=== PATIENT | male | born 1950 | race Caucasian/White ===

== ENCOUNTER 2018-05-30 03:12 | Outpatient (CLI) | payer MEDICARE, SELFPAY ==
[2018-05-30 10:57] LABS: Hemoglobin A1C 9.2 % (4.5-6.2)
[2018-05-30 11:22] LABS: Anion Gap 7.9 mmol/L (3-11); BUN 15 mg/dL (7-18); CO2 26.1 mmol/L (21.0-32.0); CREATININE 1.47 mg/dL (0.70-1.30); Calcium 8.9 mg/dL (8.5-10.1); Chloride 99 mmol/L (98-107); Glucose 255 mg/dL (70-100); Potassium 4.9 mmol/L (3.5-5.1); Sodium 133 mmol/L (136-145)
[2018-05-30 11:29] LABS: COMMENT (LAB VIEW ONLY) 129.96 mg/dL; Microalb ug/mg Crea 74.8 ug/mg Cr
== END 2018-05-30 03:32 ==
PROVIDERS: PCP Emergency Medicine; Visit Provider Emergency Medicine
DX: E11.9 Type 2 diabetes mellitus without complications (principal)
CPT/HCPCS: 36415; 80048; 82043; 82570; 83036

== ENCOUNTER → 2018-11-01 10:24 | Outpatient (BNVA) | payer MEDICARE, BC, SELFPAY | PROVIDERS: PCP Emergency Medicine; Referring Provider Emergency Medicine; Visit Provider Surgery | DX: K42.9 Umbilical hernia without obstruction or gangrene (principal); I10 Essential (primary) hypertension; E11.9 Type 2 diabetes mellitus without complications | CPT/HCPCS: 99203; 99213 ==

== ENCOUNTER 2018-11-06 09:35 | Day surgery (SDC) | payer MEDICARE, BC, SELFPAY ==
[2018-11-06 09:47] VITALS: BP 133/88; PULSE 89; RESP 18; TEMP 36.5; O2SAT 94
[2018-11-06] MEDS: Lactated Ringers 1,000 ML 80 ML IV (10:13)
[2018-11-06] MEDS: Bupivacaine 0.25% Pres-Free 30 ML VIAL (11:00)
[2018-11-06] MEDS: Bupivacaine 0.25% Pres-Free 10 ML VIAL (11:53)
[2018-11-06 12:42] VITALS: BP 134/89; PULSE 74; RESP 16; TEMP 36.2; O2SAT 94
--- NOTE | 2018-11-06 12:46 | PDOC.DSDIS_ITS ---
Discharge Plan Disposition Patient Disposition: HOME Condition: Good Discharge Details Reason For Visit: HERNIA Attending Provider: Simi Morley Primary Care Provider: Bhavin Giordano Home Meds and New Rx's Prescriptions: New ibuprofen 600 mg tablet 600 mg PO QID PRN (Reason: pain) Qty: 30 RF: 0 acetaminophen 500 mg capsule 1,000 mg PO Q6H PRN (Reason: pain) Qty: 30 RF: 0 Continued ProAir HFA 90 mcg/actuation HFA aerosol inhaler 2 puff IH QID PRN (Reason: shortness of breath or wheezing) Qty: 8.5 RF: 4 aspirin [Aspirin Low-Strength] 81 MG tablet,chewable 81 mg PO DAILY RF: 0 lancets [FreeStyle Lancets] 1 EACH misc 1 ea Miscellaneous DAILY Qty: 90 RF: 4 FreeStyle Lite Strips 1 EACH strip 1 ea Miscellaneous DAILY Qty: 90 RF: 3 glipizide 5 MG tablet extended release 24hr 5 mg PO BID Qty: 180 RF: 3 FreeStyle Lite Strips 1 EACH strip 1 ea Miscellaneous DAILY Qty: 90 RF: 4 lisinopril 10 MG tablet 10 mg PO DAILY Qty: 90 RF: 4 metformin 500 MG tablet extended release 24hr 2 tab PO DAILY Qty: 180 RF: 3 omeprazole 20 mg capsule,delayed release(DR/EC) 20 mg PO DAILY Qty: 60 RF: 4 Discharge Instructions Instructions: Ventral Hernia Repair (DC) Additional Instructions: Activity at Home after surgery: 1. Make sure you walk outside at least 4 times per day 2. You should be able to climb a flight of stairs 3. No driving while in pain or taking pain medications 4. No strenuous activity or heavy lifting for 4 weeks (open surgery) Diet, Nutrition, & wound healin. Avoid alcohol until after you are recovered from your surgery 2. Make sure to eat plenty of lean protein (meat, fish, eggs, cottage cheese, beans) 3. Eat a variety of fruits and vegetables. Eat plenty of high fiber foods to avoid constipation. 4. Drink plenty of liquids to stay hydrated and avoid constipation Pain Medications: 1. Alternate Tylenol 1000 mg and Ibuprofen 600 mg every 3 hours 2. If a narcotic has been prescribed take as directed only for breakthrough pain For Constipation: 1. Take Milk of Magnesia or MiraLax as needed for constipation Other: 1. You may shower daily. Do not scrub the incisions 2. Do not soak the incisions for 1 week 3. You may alternate ice and heat as needed for pain and swelling Wound Care: 1. Keep the incisions clean and dry Please call our office if you develop: 1. Fevers >101.5 2. Nausea or Vomiting 3. Worsening pain 4. Redness and thick discharge from the wounds If after hours please call the Hospital at and ask to speak to the on-call surgeon Stand Alone Forms: DSU Post op Instructions, Chinyere Hathaway (DSU) Referrals: Simi Morley MD [ [facility] STAFF PHYSICIAN] - (2 weeks) Activity:: Activity as Tolerated Diet:: As Tolerated Discharge Orders Discharge Orders: Discharge Order (Routine); Ordered 11/06/18 Ordered By: Simi Morley DS: Diagnosis Discharge Diagnosis (1) History of umbilical hernia repair: Status: Acute
[2018-11-06 12:47] VITALS: BP 116/69; PULSE 73; RESP 16; TEMP 36.2; O2SAT 93
--- NOTE | 2018-11-06 12:50 | W.PM.OP ---
Date of service: 11/06/18 Time of Service: 12:50 Operative Note DATE OF PROCEDURE: 11/06/18 PRE-OP DIAGNOSIS: Umbilical hernia POST-OP DIAGNOSIS: same PROCEDURE: Umbilical Hernia repair with mesh SURGEON: Simi Morley CENTRAL SCHEDULER: Maricarmen Rivera ANESTHESIA: MAC and regional ESTIMATED BLOOD LOSS: 25 PATHOLOGY: none sent COMPLICATIONS: None Patient was transported to: same day Patient's condition: stable Implants: Ventralex ST Hernia Patch Lot# [id number] Ref # [id number] Indications: Mr. Goode is a pleasant 68 year old male who was seen in the office with an enlarging umbilical hernia. Risks, benefits and complications have been reviewed. Complications include but are not limited to bleeding, pain, infection, injury to underlying structures like bowel and adverse reaction to the medication. Questions were entertained and answered to their satisfaction and they wished to proceed. No guarantees were given or implied. Procedure Description: After informed consent was obtained the patient was taken to the operating room and placed in a supine position. Monitors and SCDs were applied and a timeout was done. The patient's name, date of , procedure type, procedure site, allergies to medications, preoperative antibiotic, and DVT prophylaxis were all reviewed. Fire risk was assessed. Next anesthesia did a bilateral rectus block under ultrasound guidance. Please see their separate dictation. Once anesthesia was done the abdomen was prepped and draped in a sterile surgical fashion. 0.5% Bupivacaine was injected into the dermis just under the umbilicus. An incision was made with a 10 blade under the umbilicus. Dissection was done with cautery through the subcutaneous tissues and through the umbilical stalk down to the fascia. The hernia defect was identified and measured 1 inch. The hernia sac was opened and the peritoneum was swept for adhesions. no adhesions were noted. A 3.2 inch round mesh was then placed under the peritoneum and secured in 4 quarters with 2-0 Proline. Once the mesh was secured the tissues were irrigated with some normal saline. No bleeding was identified. The fascia was closed over the mesh with 0 vicryl running suture. 2-0 Vicryl was used to secure the umbilicus down to the fascia. The subcutaneous tissue was re-approximated with 2-0 vicryl. The dermis was re-approximated with a running 4-0 Vicryl. The skin was cleaned and dried and skin affix was applied. The patient was woken up and taken back to recovery in stable condition. There were no immediate complications. Sponge, instrument and needle counts were correct at the end of the case x2.
[2018-11-06 12:52] VITALS: BP 124/75; PULSE 72; RESP 16; TEMP 36.2; O2SAT 94
[2018-11-06 12:57] VITALS: BP 115/78; PULSE 69; RESP 13; TEMP 36.2; O2SAT 95
--- NOTE | 2018-11-06 12:59 | ROE_ITS ---
Date of service: 11/06/18 Time of Service: 12:50 Operative Note DATE OF PROCEDURE: 11/06/18 PRE-OP DIAGNOSIS: Umbilical hernia POST-OP DIAGNOSIS: same PROCEDURE: Umbilical Hernia repair with mesh SURGEON: Simi Morley RETORT FIREMAN: Maricarmen Rivera ANESTHESIA: MAC and regional ESTIMATED BLOOD LOSS: 25 PATHOLOGY: none sent COMPLICATIONS: None Patient was transported to: same day Patient's condition: stable Implants: Ventralex ST Hernia Patch Lot# [id number] Ref # [id number] Indications: Mr. Goode is a pleasant 68 year old male who was seen in the office with an enlarging umbilical hernia. Risks, benefits and complications have been reviewed. Complications include but are not limited to bleeding, pain, infection, injury to underlying structures like bowel and adverse reaction to the medication. Questions were entertained and answered to their satisfaction and they wished to proceed. No guarantees were given or implied. Procedure Description: After informed consent was obtained the patient was taken to the operating room and placed in a supine position. Monitors and SCDs were applied and a timeout was done. The patient's name, date of , procedure type, procedure site, allergies to medications, preoperative antibiotic, and DVT prophylaxis were all reviewed. Fire risk was assessed. Next anesthesia did a bilateral rectus block under ultrasound guidance. Please see their separate dictation. Once anesthesia was done the abdomen was prepped and draped in a sterile surgical fashion. 0.5% Bupivacaine was injected into the dermis just under the umbilicus. An incision was made with a 10 blade under the umbilicus. Dissection was done with cautery through the subcutaneous tissues and through the umbilical stalk down to the fascia. The hernia defect was identified and measured 1 inch. The hernia sac was opened and the peritoneum was swept for adhesions. no adhesions were noted. A 3.2 inch round mesh was then placed under the peritoneum and secured in 4 quarters with 2-0 Proline. Once the mesh was secured the tissues were irrigated with some normal saline. No bleeding was identified. The fascia was closed over the mesh with 0 vicryl running suture. 2-0 Vicryl was used to secure the umbilicus down to the fascia. The subcutaneous tissue was re-approximated with 2-0 vicryl. The dermis was re-approximated with a running 4-0 Vicryl. The skin was cleaned and dried and skin affix was applied. The patient was woken up and taken back to recovery in stable condition. There were no immediate complications. Sponge, instrument and needle counts were correct at the end of the case x2.
[2018-11-06] MEDS: Acetaminophen 325 MG TAB 650 MG PO (13:40)
[2018-11-06 14:06] VITALS: BP 130/76; PULSE 75; RESP 16; TEMP 36.2; O2SAT 93
== END 2018-11-06 14:25 | disposition home or self-care (01) ==
PROVIDERS: PCP Emergency Medicine; Visit Provider Surgery
PROC: (CPT 49505; principal; 2018-11-06 10:45)
DX: K42.9 Umbilical hernia without obstruction or gangrene (principal); E11.9 Type 2 diabetes mellitus without complications; Z79.84 Long term (current) use of oral hypoglycemic drugs; I10 Essential (primary) hypertension
CPT/HCPCS: 49505; 49585; 76942; C1781; J0690; J1100; J2405

== ENCOUNTER 2018-11-22 08:54 | Outpatient (CLI) | payer MEDICARE, BC, SELFPAY ==
[2018-11-22 11:12] LABS: COMMENT (LAB VIEW ONLY) 89.45 mg/dL; Microalb ug/mg Crea 105.4 ug/mg Cr
[2018-11-22 11:36] LABS: Anion Gap 6.5 mmol/L (3-11); BUN 15 mg/dL (7-18); CO2 30.5 mmol/L (21.0-32.0); CREATININE 1.24 mg/dL (0.70-1.30); Chloride 97 mmol/L (98-107); Cholesterol 298 mg/dL (50-200); Glucose 232 mg/dL (70-100); HDL Cholesterol 42 mg/dL (40-60); LDL CHOLESTEROL 188 mg/dL (<100); Potassium 5.1 mmol/L (3.5-5.1); Sodium 134 mmol/L (136-145); Triglyceride 335 mg/dL (30-150)
[2018-11-25 11:43] LABS: PSA, Screening 2.2 ng/ml (0-4.5)
== END 2018-11-22 09:14 ==
PROVIDERS: PCP Emergency Medicine; Visit Provider Emergency Medicine
DX: E11.65 Type 2 diabetes mellitus with hyperglycemia (principal); I12.9 Hypertensive chronic kidney disease with stage 1 through stage 4 chronic kidney disease, or unspecified chronic kidney disease; Z12.5 Encounter for screening for malignant neoplasm of prostate; Z48.815 Encounter for surgical aftercare following surgery on the digestive system; E11.22 Type 2 diabetes mellitus with diabetic chronic kidney disease; N18.9 Chronic kidney disease, unspecified
CPT/HCPCS: 36415; 80048; 80061; 83721; 84153; 82043; 82570; 83036

== ENCOUNTER 2019-02-04 01:44 | Outpatient (CLI) | payer MEDICARE, BC, SELFPAY ==
[2019-02-04 12:01] LABS: Hemoglobin A1C 9.4 % (4.5-6.2)
[2019-02-04 12:45] LABS: Anion Gap 9.2 mmol/L (3-11); BUN 23 mg/dL (7-18); CO2 28.8 mmol/L (21.0-32.0); CREATININE 1.34 mg/dL (0.70-1.30); Calcium 9.7 mg/dL (8.5-10.1); Chloride 98 mmol/L (98-107); Estimated GFR 52.85 (mL/min/1.73m2); Glucose 214 mg/dL (70-100); Sodium 136 mmol/L (136-145)
== END 2019-02-04 02:04 ==
PROVIDERS: PCP Emergency Medicine; Visit Provider Emergency Medicine
DX: I10 Essential (primary) hypertension (principal); E11.9 Type 2 diabetes mellitus without complications
CPT/HCPCS: 36415; 80048; 83036

== ENCOUNTER 2019-07-07 15:40 | Emergency (ER) | payer MEDICARE, BC, SELFPAY ==
[2019-07-07 15:44] VITALS: BP 163/86; PULSE 86; RESP 16; TEMP 36.6; O2SAT 96
--- NOTE | 2019-07-07 16:16 | ED.GENADUL_ITS ---
Discharge Plan Disposition Patient Disposition: HOME Condition: Good Discharge Details Chief Complaint: Laceration Clinical Impression: Laceration of finger Primary Care Provider: Bhavin Giordano ED Provider: Kelsi Johns Home Meds and New Rx's Prescriptions: Continued metformin 1,000 mg tablet 1,000 mg PO BID RF: 0 amlodipine 5 mg tablet 5 mg PO DAILY Qty: 90 RF: 3 pravastatin 20 mg tablet 20 mg PO DAILY Qty: 90 RF: 3 albuterol sulfate [ProAir HFA] 90 mcg/actuation HFA aerosol inhaler 2 puff IH QID PRN (Reason: shortness of breath or wheezing) Qty: 8.5 RF: 4 aspirin [Aspirin Low-Strength] 81 MG tablet,chewable 81 mg PO DAILY RF: 0 (DME) lancets [FreeStyle Lancets] 1 EACH misc 1 ea Miscellaneous DAILY Qty: 90 RF: 4 (DME) blood-glucose meter [FreeStyle Lite Meter] kit See Dose Instructions .ROUTE .MEDSUPPLY Qty: 1 RF: 0 (DME) FreeStyle Lite Strips strip 1 ea Miscellaneous DAILY Qty: 90 RF: 4 lisinopril 10 mg tablet 10 mg PO DAILY Qty: 90 RF: 4 glipizide 5 mg tablet extended release 24hr 10 mg PO BID Qty: 180 RF: 3 omeprazole 20 mg capsule,delayed release(DR/EC) 20 mg PO DAILY Qty: 60 RF: 4 ibuprofen 600 mg tablet 600 mg PO QID PRN (Reason: pain) Qty: 30 RF: 0 acetaminophen 500 mg capsule 1,000 mg PO Q6H PRN (Reason: pain) Qty: 30 RF: 0 Discharge Instructions Instructions: Finger Laceration (ED) Additional Instructions: Keep wound clean, dry, covered. Please keep the current dressing in the next 24 hours. After that time you may remove and covered with a Band-Aid. Please put the splint on after you remove the current dressing. Monitor wound for signs of infection including redness, warmth, drainage, increased pain, fever/chills. If you develop these or the new/worsening to please seek care urgently once again. Please wear gloves when appropriate. Do not soak. Please return in 1 week for reevaluation and suture removal. Referrals: Bhavin Giordano DO [Primary Care Provider] - Medical Decision Making Patient is a 69-year-old [id number] male presents today with chief complaint of laceration to the right middle finger. He reports he was cutting a piece of wood and accidentally cut his finger with laceration. He is a 4 cm laceration into the subcutaneous tissue over the PIP joint extending towards the DIP joint of the right middle finger. Sensation is intact distal to the wound. He has good extension against resistance. No ligamentous or bony injury is noted on exam. Wound is not actively bleeding. Patient is not up-to-date on tetanus, will update this today. Patient I discussed risk/benefits as well as expected procedural steps of suture closure. He voiced understanding and wished to proceed. Please see procedure note. Patient tolerated this well. Wound was copiously irrigated and explored to base in a bloodless field no foreign body or debris noted. Patient tolerated procedure well. A bulky dressing was applied. We will give him a foam metal splint to apply after this dressing comes off to help prevent any flexion of the finger that may place undue pressure on the sutures. Return in 7 days for suture removal. We discussed signs symptoms of infection when to seek care urgently once again. We discussed wound care in depth. All his questions and concerns were addressed and he is in agreement this plan. HPI General Mode of arrival: ambulatory . Date/Time Provider Initiated Documentation: 07/07/19 16:16 . Limitations to Documentation: no limitations . Information obtained by: patient, family and RN notes reviewed . History of Present Illness 69 year old M presents to the emergency department with the c moef complaint of Right middle finger laceration, described as mild, with intensity rated at 3. Quality is described as aching, and is localized to the right and upper extremity. Patient reports no radiation. Patient started experiencing this hour(s) (1) and it has been constant. No relieving factors improve symptom(s), No exacerbating factors reported . Patient notes no other symptoms.. Patient did receive the following treatments prior to arrival, none Related Data Home Medications Medication Instructions Recorded Confirmed aspirin [Aspirin Low-Strength] 81 mg PO DAILY tab-cap 06/06/13 07/07/19 lancets [FreeStyle Lancets] #90 ea 09/12/16 04/01/19 acetaminophen 1,000 mg PO Q6H PRN #30 cap 11/06/18 07/07/19 ibuprofen 600 mg PO QID PRN #30 tab 11/06/18 07/07/19 albuterol sulfate 90 mcg/actuation 2 puff IH QID PRN #8.5 gm 12/19/18 07/07/19 aerosol inhaler amlodipine 5 mg tablet 5 mg PO DAILY #90 tab 12/19/18 07/07/19 pravastatin 20 mg tablet 20 mg PO DAILY #90 tab 12/19/18 07/07/19 blood-glucose meter #1 each 12/25/18 04/01/19 blood sugar diagnostic #90 strip 01/14/19 04/01/19 metformin 1,000 mg tablet 1,000 mg PO BID tab 02/07/19 07/07/19 lisinopril 10 mg tablet 10 mg PO DAILY #90 tab-cap 02/14/19 07/07/19 glipizide 5 mg tablet, extended 10 mg PO BID #180 tab-cap 02/18/19 07/07/19 release 24 hr omeprazole 20 mg capsule,delayed 20 mg PO DAILY #60 tab-cap 05/28/19 07/07/19 release Previous Rx's Medication Instructions Recorded acetaminophen 1,000 mg PO Q6H PRN #30 cap 11/06/18 ibuprofen 600 mg PO QID PRN #30 tab 11/06/18 albuterol sulfate 90 mcg/actuation 2 puff IH QID PRN #8.5 gm 12/19/18 aerosol inhaler amlodipine 5 mg tablet 5 mg PO DAILY #90 tab 12/19/18 pravastatin 20 mg tablet 20 mg PO DAILY #90 tab 12/19/18 blood-glucose meter #1 each 12/25/18 blood sugar diagnostic #90 strip 01/14/19 lisinopril 10 mg tablet 10 mg PO DAILY #90 tab-cap 02/14/19 glipizide 5 mg tablet, extended 10 mg PO BID #180 tab-cap 02/18/19 release 24 hr omeprazole 20 mg capsule,delayed 20 mg PO DAILY #60 tab-cap 05/28/19 release Allergies Allergy/AdvReac Type Severity Reaction Status Date / Time gabapentin AdvReac Intermediate nightmares Verified 07/07/19 15:46 rosuvastatin calcium AdvReac Intermediate myalgias Verified 07/07/19 15:46 [From Crestor] prednisone AdvReac Mild GI BURN Verified 07/07/19 15:46 atorvastatin AdvReac Unknown Verified 07/07/19 15:46 General Stated Complaint: Laceration JENNIFER: 4 Review of Systems Constitutional Constitutional: Reports as per HPI, Denies chills and Denies fever(s) Musculoskeletal Musculoskeletal: Reports as per HPI Integumentary/Breasts Skin/Breast: Reports as per HPI Neurologic Neurologic: Reports as per HPI, Denies sensory deficit and Denies paresthesias [facility] Medical History Bilateral tinnitus (Acute 03/28/16) Carpal tunnel syndrome (Acute) Chronic kidney disease, stage 1 (Acute 11/24/15) Essential hypertension (Acute) Hyperlipidemia (Acute) Migraine (Acute) Right-sided chest pain (Acute 12/25/17) Statin intolerance (Acute 11/24/15) Type II diabetes mellitus, uncontrolled (Acute) Umbilical hernia (Acute) Surgical History Cholecystectomy History of umbilical hernia repair (Acute ~11/06/18) Social History Smoking/Tobacco Use Status: Never Alcohol Intake: never Drug use: Never Substance use type: does not use Caregiver/Support person: No Household members: spouse Pets and animals: No Sexually active: Yes Frequency: does not exercise Nava/Orthodox: Baptism Special nava needs: No Do you feel safe in your relationship?: Yes Exam Const General: cooperative, healthy appearing, comfortable, no acute distress and well developed Nutritional Appearance: average body habitus and well nourished Orientation: alert and awake Resp Effort & Inspection: normal respiratory effort, able to speak in complete sentences and no respiratory distress Cardio Rate: regular rate Rhythm: regular rhythm Skin Trauma: laceration (4cm dorsal index finger right hand extending from PIP to DIP) Neuro General: alert and awake Cognition: normal cognition Speech: speech normal Gait: normal gait Sensory Exam: no sensory deficits noted Extrem Hand/finger images: 1. Wound calluses over the PIP joint. Is into the subcutaneous tissue. No ligamentous injury Psych Appearance: grossly normal and well kempt Mental Status: mental status grossly normal Speech and Movement: speech and movement normal Course Vital Signs Vital signs: Vital Signs Temperature 36.6 C 07/07/19 15:44 Pulse 86 07/07/19 15:44 Respiratory Rate 16 07/07/19 15:44 Blood Pressure 163/86 H 07/07/19 15:44 Pulse Oximetry 96 07/07/19 15:44 Temperature 36.6 C 07/07/19 15:44 Temperature Source Skin 07/07/19 15:44 Pulse 86 07/07/19 15:44 Respiratory Rate 16 07/07/19 15:44 Respiratory Effort Non-Labored 07/07/19 15:44 Blood Pressure 163/86 H 07/07/19 15:44 Blood Pressure Position Sitting 07/07/19 15:44 Pulse Oximetry 96 07/07/19 15:44 Oxygen Delivery Method Room Air 07/07/19 15:44 Oxygen Flow Rate 0 07/07/19 15:44 Pain Level 3 07/07/19 15:44 Procedures Laceration Laceration 1: Site: hand Side (If applicable): right Size (cm): 4 Description: linear Depth: simple, single layer Local Anesthetic: Lidocaine 1% Amount of anesthesia used (mL): 5 Pre-repair: wound explored, irrigated extensively and deep structures intact Skin layer closed with: nylon Size (cm): 5-0 Number of sutures: 6
== END 2019-07-07 16:50 | disposition home or self-care (01) ==
PROVIDERS: Emergency Provider Physician Assistant; PCP Emergency Medicine
DX: S61.212A Laceration without foreign body of right middle finger without damage to nail, initial encounter (principal); W31.2XXA Contact with powered woodworking and forming machines, initial encounter
CPT/HCPCS: 12002; 90471

== ENCOUNTER 2019-07-14 11:26 | Emergency (ER) | payer MEDICARE, BC, SELFPAY ==
[2019-07-14 11:34] VITALS: BP 121/70; PULSE 90; RESP 18; TEMP 36.7; O2SAT 95
--- NOTE | 2019-07-14 12:38 | ED.GENADUL_ITS ---
Discharge Plan Disposition Patient Disposition: HOME Condition: Stable Discharge Details Chief Complaint: SutureRem Clinical Impression: Visit for suture removal Primary Care Provider: Bhavin Giordano ED Provider: Nando Lombardi Home Meds and New Rx's Prescriptions: No Action metformin 1,000 mg tablet 1,000 mg PO BID RF: 0 amlodipine 5 mg tablet 5 mg PO DAILY Qty: 90 RF: 3 pravastatin 20 mg tablet 20 mg PO DAILY Qty: 90 RF: 3 albuterol sulfate [ProAir HFA] 90 mcg/actuation HFA aerosol inhaler 2 puff IH QID PRN (Reason: shortness of breath or wheezing) Qty: 8.5 RF: 4 aspirin [Aspirin Low-Strength] 81 MG tablet,chewable 81 mg PO DAILY RF: 0 (DME) lancets [FreeStyle Lancets] 1 EACH misc 1 ea Miscellaneous DAILY Qty: 90 RF: 4 (DME) blood-glucose meter [FreeStyle Lite Meter] kit See Dose Instructions .ROUTE .MEDSUPPLY Qty: 1 RF: 0 (DME) FreeStyle Lite Strips strip 1 ea Miscellaneous DAILY Qty: 90 RF: 4 lisinopril 10 mg tablet 10 mg PO DAILY Qty: 90 RF: 4 glipizide 5 mg tablet extended release 24hr 10 mg PO BID Qty: 180 RF: 3 omeprazole 20 mg capsule,delayed release(DR/EC) 20 mg PO DAILY Qty: 60 RF: 4 ibuprofen 600 mg tablet 600 mg PO QID PRN (Reason: pain) Qty: 30 RF: 0 acetaminophen 500 mg capsule 1,000 mg PO Q6H PRN (Reason: pain) Qty: 30 RF: 0 Discharge Instructions Instructions: Stitches Removal (ED) Discharge Data Discharge Date/Time-TO BE ENTERED AT DEPARTURE: 07/14/19 12:47 Medical Decision Making Patient here for suture removal on posterior right middle finger. Has very minimal about 1mm surrounding erythema that is not warm or tender, doubt cellulitis. Has full rom of the finger and sensation without swelling. Wound appears well healed, nursing will remove sutures. Differential Diagnosis Differential Diagnosis: suture removal, lac HPI General Mode of arrival: ambulatory . Date/Time Provider Initiated Documentation: 07/14/19 12:12 . Limitations to Documentation: no limitations . Information obtained by: patient . History of Present Illness 69 year old M presents to the emergency department with the chief complaint of suture removal, described as mild, No relieving factors improve symptom(s), No exacerb ating factors reported . Patient notes no other symptoms.. Related Data Home Medications Medication Instructions Recorded Confirmed aspirin [Aspirin Low-Strength] 81 mg PO DAILY tab-cap 06/06/13 07/07/19 lancets [FreeStyle Lancets] #90 ea 09/12/16 04/01/19 acetaminophen 1,000 mg PO Q6H PRN #30 cap 11/06/18 07/07/19 ibuprofen 600 mg PO QID PRN #30 tab 11/06/18 07/07/19 albuterol sulfate 90 mcg/actuation 2 puff IH QID PRN #8.5 gm 12/19/18 07/07/19 aerosol inhaler amlodipine 5 mg tablet 5 mg PO DAILY #90 tab 12/19/18 07/07/19 pravastatin 20 mg tablet 20 mg PO DAILY #90 tab 12/19/18 07/07/19 blood-glucose meter #1 each 12/25/18 04/01/19 blood sugar diagnostic #90 strip 01/14/19 04/01/19 metformin 1,000 mg tablet 1,000 mg PO BID tab 02/07/19 07/07/19 lisinopril 10 mg tablet 10 mg PO DAILY #90 tab-cap 02/14/19 07/07/19 glipizide 5 mg tablet, extended 10 mg PO BID #180 tab-cap 02/18/19 07/07/19 release 24 hr omeprazole 20 mg capsule,delayed 20 mg PO DAILY #60 tab-cap 05/28/19 07/07/19 release Previous Rx's Medication Instructions Recorded acetaminophen 1,000 mg PO Q6H PRN #30 cap 11/06/18 ibuprofen 600 mg PO QID PRN #30 tab 11/06/18 albuterol sulfate 90 mcg/actuation 2 puff IH QID PRN #8.5 gm 12/19/18 aerosol inhaler amlodipine 5 mg tablet 5 mg PO DAILY #90 tab 12/19/18 pravastatin 20 mg tablet 20 mg PO DAILY #90 tab 12/19/18 blood-glucose meter #1 each 12/25/18 blood sugar diagnostic #90 strip 01/14/19 lisinopril 10 mg tablet 10 mg PO DAILY #90 tab-cap 02/14/19 glipizide 5 mg tablet, extended 10 mg PO BID #180 tab-cap 02/18/19 release 24 hr omeprazole 20 mg capsule,delayed 20 mg PO DAILY #60 tab-cap 05/28/19 release Allergies Allergy/AdvReac Type Severity Reaction Status Date / Time gabapentin AdvReac Intermediate nightmares Verified 07/07/19 15:46 rosuvastatin calcium AdvReac Intermediate myalgias Verified 07/07/19 15:46 [From Crestor] prednisone AdvReac Mild GI BURN Verified 07/07/19 15:46 atorvastatin AdvReac Unknown Verified 07/07/19 15:46 General Stated Complaint: SutureRem JENNIFER: 5 Review of Systems Review of Systems ROS Unobtainable: All systems reviewed & are unremarkable except as noted in HPI and below Constitutional Constitutional: Denies chills, Denies fever(s) and Denies weakness Cardiovascular Cardiovascular: Denies chest pain Gastrointestinal Gastrointestinal: Denies abdominal pain, Denies nausea and Denies vomiting Musculoskeletal Musculoskeletal: Denies joint swelling Neurologic Neurologic: Denies weakness [facility] Social History Smoking/Tobacco Use Status: Never Alcohol Intake: never Drug use: Never Substance use type: does not use Caregiver/Support person: No Household members: spouse Pets and animals: No Sexually active: Yes Frequency: does not exercise Nava/Protestant: Muslim Special nava needs: No Do you feel safe at home: Yes Do you feel safe in your relationship?: Yes Exam Const General: no acute distress Orientation: alert HENMT Head: normal to inspection Ears: external ears normal General nose exam: external nose normal Mouth: moist mucous membranes Eyes General: appearance normal, both eyes and all related structures Neck Neck: normal visual inspection Resp Effort & Inspection: normal respiratory effort and able to speak in complete sentences Cardio Rate: regular rate Skin General skin exam: elasticity normal Neuro General: alert and oriented x3 Extrem General: full ROM and normal capillary refill Psych Mental Status: mental status grossly normal Course Vital Signs Vital signs: Vital Signs Temperature 36.7 C 07/14/19 11:34 Pulse 90 07/14/19 11:34 Respiratory Rate 18 07/14/19 11:34 Blood Pressure 121/70 07/14/19 11:34 Pulse Oximetry 95 07/14/19 11:34 Temperature 36.7 C 07/14/19 11:34 Temperature Source Skin 07/14/19 11:34 Pulse 90 07/14/19 11:34 Respiratory Rate 18 07/14/19 11:34 Blood Pressure 121/70 07/14/19 11:34 Blood Pressure Position Sitting 07/14/19 11:34 Pulse Oximetry 95 07/14/19 11:34 Oxygen Delivery Method Room Air 07/14/19 11:34 Oxygen Flow Rate 0 07/14/19 11:34 Pain Level 0 07/14/19 11:34
== END 2019-07-14 12:47 | disposition home or self-care (01) ==
PROVIDERS: Emergency Provider Emergency Medicine; PCP Emergency Medicine
DX: S61.213D Laceration without foreign body of left middle finger without damage to nail, subsequent encounter (principal); W45.8XXD Other foreign body or object entering through skin, subsequent encounter; Z48.02 Encounter for removal of sutures

== ENCOUNTER 2019-10-08 00:51 | Outpatient (CLI) | payer MEDICARE, BC, SELFPAY ==
[2019-10-08 11:58] LABS: Hemoglobin A1C 9.5 % (3.8-5.6)
[2019-10-08 12:17] LABS: Anion Gap 9.5 mmol/L (3-11); BUN 22 mg/dL (7-18); CO2 27.5 mmol/L (21.0-32.0); CREATININE 1.41 mg/dL (0.70-1.30); Chloride 98 mmol/L (98-107); Cholesterol 256 mg/dL (<200); Estimated GFR 49.69 (mL/min/1.73m2); Glucose 340 mg/dL (74-106); HDL Cholesterol 36 mg/dL (40-60); Potassium 4.8 mmol/L (3.5-5.1); Sodium 135 mmol/L (136-145); Triglyceride 444 mg/dL (<150)
[2019-10-08 12:27] LABS: LDL CHOLESTEROL 149 mg/dL (<100)
== END 2019-10-08 01:11 ==
PROVIDERS: PCP Emergency Medicine; Visit Provider Emergency Medicine
DX: E11.9 Type 2 diabetes mellitus without complications (principal); I10 Essential (primary) hypertension
CPT/HCPCS: 36415; 80048; 80061; 83721; 83036

== ENCOUNTER 2021-02-01 13:53 | Outpatient (REF) | payer MEDICARE, BC, SELFPAY ==
[2021-02-01 21:21] LABS: Anion Gap 8.5 mmol/L (3-11); BUN 19 mg/dL (7-18); CO2 27.5 mmol/L (21.0-32.0); CREATININE 1.3 mg/dL (0.70-1.30); Calcium 9.3 mg/dL (8.5-10.1); Chloride 98 mmol/L (98-107); Cholesterol 226 mg/dL (<200); Estimated GFR 54.42 (mL/min/1.73m2); Glucose 292 mg/dL (74-106); HDL Cholesterol 38 mg/dL (40-60); Hemoglobin A1C 9.5 % (<5.7); Sodium 134 mmol/L (136-145); Triglyceride 507 mg/dL (<150)
[2021-02-01 22:26] LABS: LDL CHOLESTEROL 116 mg/dL (<100)
== END 2021-02-01 13:54 | disposition home or self-care (01) ==
LOC: LBN 13:53
PROVIDERS: PCP Emergency Medicine; Visit Provider Emergency Medicine
DX: I10 Essential (primary) hypertension (principal); E11.9 Type 2 diabetes mellitus without complications
CPT/HCPCS: 80048; 80061; 83721; 83036

== ENCOUNTER 2022-01-31 07:41 | Outpatient (CLI) | payer MEDICARE, BC, SELFPAY ==
[2022-01-31 09:45] VITALS: BP 149/85; PULSE 72; RESP 16; TEMP 36.6; O2SAT 96
[2022-01-31 10:59] VITALS: BP 149/85; RESP 17; TEMP 36.1; O2SAT 94
== END 2022-01-31 07:42 | disposition home or self-care (01) ==
LOC: INF 07:45
PROVIDERS: PCP Family Medicine; Visit Provider Family Medicine
DX: U07.1 COVID-19 (principal)
CPT/HCPCS: 96374; Q0222

== ENCOUNTER 2022-02-23 03:07 | Outpatient (CLI) | payer MEDICARE, BC, SELFPAY ==
[2022-02-23 09:33] LABS: HCT 44.4 % (40.0-50.0); HGB 14.8 g/dL (13.5-17.5); MCH 29.1 pg (27.0-33.0); MCHC 33.3 % (32.0-36.0); MCV 87 fL (80-95); MPV 9.1 fL (8.0-11.0); Platelet Count 417 10^3/uL (130-400); RBC 5.09 10^6/uL (4.36-5.78); RDW 12.3 % (11.8-14.1); RDW-SD 39.1 fL; WBC 9.49 10^3/uL (4.4-10.8)
[2022-02-23 10:01] LABS: Hemoglobin A1C 9.7 % (<5.7)
[2022-02-23 10:47] LABS: ALT 42 U/L (16-63); AST 14 U/L (15-37); Albumin 4.1 g/dL (3.4-5.0); Alkaline Phosphatase 109 U/L (46-116); Anion Gap 11.2 mmol/L (3-11); BUN 21 mg/dL (7-18); Bilirubin, Total 0.7 mg/dL (0.2-1.0); CO2 27.8 mmol/L (21.0-32.0); CREATININE 1.4 mg/dL (0.70-1.30); Calcium 9.1 mg/dL (8.5-10.1); Calculated LDL 169 mg/dL (<100); Chloride 102 mmol/L (98-107); Cholesterol 276 mg/dL (<200); Estimated GFR 49.82 (mL/min/1.73m2); Glucose 120 mg/dL (74-106); HDL Cholesterol 44 mg/dL (40-60); Potassium 4.9 mmol/L (3.5-5.1); Sodium 141 mmol/L (136-145); Total Protein 6.9 g/dL (6.4-8.2); Triglyceride 315 mg/dL (<150)
[2022-02-23 10:48] LABS: COMMENT (LAB VIEW ONLY) 105.21 mg/dL
[2022-02-23 10:50] LABS: Microalb ug/mg Crea 127.4 ug/mg Cr
[2022-02-23 18:16] LABS: PSA, Screening 1.7 ng/mL (<=6.5)
== END 2022-02-23 03:08 | disposition home or self-care (01) ==
LOC: LBO 03:07
PROVIDERS: PCP Nurse Practitioner Family; Visit Provider Family Medicine
DX: E11.65 Type 2 diabetes mellitus with hyperglycemia (principal); E78.5 Hyperlipidemia, unspecified; I10 Essential (primary) hypertension; Z12.5 Encounter for screening for malignant neoplasm of prostate; Z13.6 Encounter for screening for cardiovascular disorders; J45.20 Mild intermittent asthma, uncomplicated
CPT/HCPCS: 36415; 80053; 80061; 84153; 85027; 82043; 82570; 83036

== ENCOUNTER 2022-08-22 09:09 | Outpatient (CLI) | payer MEDICARE, BC, SELFPAY | END 2022-08-22 09:10 | disposition home or self-care (01) | LOC: CARDOPNVT 09:09 | PROVIDERS: PCP Nurse Practitioner Family; Visit Provider Nurse Practitioner Family | DX: R55 Syncope and collapse (principal) | CPT/HCPCS: 93246 ==

== ENCOUNTER 2022-09-21 07:27 | Outpatient (CLI) | payer MEDICARE, BC, SELFPAY ==
--- NOTE | 2022-09-21 15:06 | W.CARDEVENT ---
Date of service: 09/21/22 Time of Service: 15:06 Cardiac Event Recorder Referring Provider:: Rivas Marvin Indications:: Syncope Cardiac Event Note: This is a 14-day cardiac event monitor, ordered for syncope Predominant rhythm is sinus with average heart rate of 79. Minimum was 62, maximum 118 There were rare ventricular and atrial premature beats A total of 6 self-limited atrial runs occurred. The longest of these was 13 beats in duration There was no atrial fibrillation, no high-grade AV block, no pauses greater than 3 seconds Patient symptoms were reported. These generally corresponded to sinus rhythm in the 70s and 80s, rarely to sinus tachycardia at 110/min. There was no correlation to any dysrhythmia
== END 2022-09-21 07:28 | disposition home or self-care (01) ==
LOC: CARDOPNVT 07:27
PROVIDERS: PCP Nurse Practitioner Family; Visit Provider Internal Medicine Cardiovascular Disease
DX: I49.1 Atrial premature depolarization (principal); R00.0 Tachycardia, unspecified
CPT/HCPCS: 93248

== ENCOUNTER 2022-12-19 19:11 | Outpatient (REF) | payer MEDICARE, BC, SELFPAY ==
[2022-12-19 20:32] LABS: Abs Immature Grans 0.11 10^3/uL (0.0-0.06); Absolute Basophil Count 0.11 10^3/uL (0.0-0.2); Absolute Eosinophil Count 0.38 10^3/uL (0.0-0.7); Absolute Lymphocyte Count 2.44 10^3/uL (1.2-3.4); Absolute Monocyte Count 0.74 10^3/uL (0.1-0.8); Absolute Neutrophil Count 5.87 10^3/uL (1.2-6.7); Basophils % 1.1; Eosinophils % 3.9; HCT 46.4 % (40.0-50.0); HGB 15.6 g/dL (13.5-17.5); Immature Grans % 1.1; Lymphocytes % 25.3; MCH 28.7 pg (27.0-33.0); MCHC 33.6 % (32.0-36.0); MCV 86 fL (80-95); MPV 9.2 fL (8.0-11.0); Monocytes % 7.7; Neutrophils % 60.9; Platelet Count 483 10^3/uL (130-400); RBC 5.43 10^6/uL (4.36-5.78); RDW-SD 37.5 fL; WBC 9.65 10^3/uL (4.4-10.8)
[2022-12-19 21:58] LABS: ALT 37 U/L (16-63); AST 14 U/L (15-37); Albumin 4.3 g/dL (3.4-5.0); Alkaline Phosphatase 110 U/L (46-116); Anion Gap 10.3 mmol/L (3-11); BUN 23 mg/dL (7-18); Bilirubin, Total 0.3 mg/dL (0.2-1.0); CO2 25.7 mmol/L (21.0-32.0); CREATININE 1.5 mg/dL (0.70-1.30); Calcium 9.7 mg/dL (8.5-10.1); Chloride 102 mmol/L (98-107); Estimated GFR 48.85 (mL/min/1.73m2); Glucose 210 mg/dL (74-106); Potassium 4.5 mmol/L (3.5-5.1); Sodium 138 mmol/L (136-145); TSH (W/Ref FT4) 1.88 uIU/mL (0.36-3.74); Total Protein 7.5 g/dL (6.4-8.2)
== END 2022-12-19 19:12 | disposition home or self-care (01) ==
LOC: LBN 19:11
PROVIDERS: PCP Nurse Practitioner Family; Visit Provider Nurse Practitioner Family
DX: E11.21 Type 2 diabetes mellitus with diabetic nephropathy (principal); R21 Rash and other nonspecific skin eruption
CPT/HCPCS: 80053; 84443; 85025

== ENCOUNTER 2023-01-03 11:25 | Outpatient (REF) | payer MEDICARE, BC, SELFPAY ==
--- NOTE | 2023-01-03 10:30 | SKI_PTH ---
PATIENT: Librado Goode LOC: [facility] U#:[id number] AGE/SX: 72/M ROOM: RE01/03/[address]: Juan M Basilio DNP : 1950 BED: DIS: 01/03/2023 SPEC #: [id number] RECD: 01/03/23 12:31 STATUS: LEIGH REQ #: [id number] AGUSTINA: 01/03/23 10:[address]: Juan M Stevens DEPT: Surgical Specimen RECD BY: Vilma Pleitez ENTERED: 01/03/23 12:32 SP TYPE: SKI OT DR: Nickie Haney, BEV Tissues: 1 - SKIN BIOPSY(SHAVE/PUNCH) Procedures: SKIN LEVEL 4 Comments: [id number]
== END 2023-01-03 11:26 | disposition home or self-care (01) ==
LOC: LBN 11:25
PROVIDERS: PCP Nurse Practitioner Family; Visit Provider Nurse Practitioner Family
DX: L30.8 Other specified dermatitis (principal); R23.8 Other skin changes
CPT/HCPCS: 88305

== ENCOUNTER → 2023-01-25 12:52 | Outpatient (BNVA) | payer MEDICARE, BC, SELFPAY | PROVIDERS: PCP Nurse Practitioner Family; Referring Provider Nurse Practitioner Family; Visit Provider Physical Therapy Assistant | DX: Z12.11 Encounter for screening for malignant neoplasm of colon (principal); Z80.0 Family history of malignant neoplasm of digestive organs ==

== ENCOUNTER 2023-02-13 11:01 | Day surgery (SDC) | payer MEDICARE, BC, SELFPAY ==
[2023-02-13 12:10] VITALS: BP 152/92; PULSE 68; RESP 16; TEMP 36.5; O2SAT 96
[2023-02-13] MEDS: Lactated Ringers 1,000 ML 80 ML IV (12:35)
--- NOTE | 2023-02-13 13:41 | W.COLOREPORT ---
Date of service: 02/13/23 Time of Service: 13:41 Colonoscopy Report Procedure Description: Procedures performed: 1. Colonoscopy Preoperative diagnosis: Surveillance colonoscopy, family history of colon cancer Postoperative diagnosis: Diverticulosis, grade 1 internal hemorrhoids Surgeon: Velia Garcia Anesthesia: Saul Indication for procedure: Patient is a 72-year-old man who has a family history of colon cancer in his father. He has had prior colonoscopies that were all normal. He is not having symptoms. Findings: Terminal ileum was normal. No polyps were found. Scattered diverticular changes are present in the left colon but minimal. Mild, grade 1 internal hemorrhoid disease noted. Surveillance/follow-up recommendations: Because of the family history I recommend repeating colonoscopies every 5 years. Complications: None Blood loss: Minimal Specimens: None Quality of Prep:?? Good Procedure in detail: Written consent was obtained from the patient who was in agreement with the risks, benefits and indications of the procedure.? We went to the endoscopy suite and laid the patient in left lateral decubitus position.? Anesthesia was administered which was tolerated well.? A timeout was performed and when we are all in agreement we began the procedure. Digital rectal exam and visual examination was performed and within normal limits.? A well?lubricated colonoscope was advanced without difficulty all the way to the cecum identified by the ileocecal valve, and triangular folds and appendiceal orifice.? The terminal ileum was intubated. It was then slowly withdrawn.?? Retroflexion was performed in the rectum.? The findings/interventions are noted above. The scope was then removed and the patient tolerated the procedure well and was then taken back to the PACU in hemodynamically stable condition.
--- NOTE | 2023-02-13 14:33 | W.ANESPRE ---
General Info Date of Service Date Performed: 02/13/23 Height: 5 ft 6 in Weight: 85 kg Body Mass Index (BMI): 30.2 Surgical Procedure: Operation Date: 02/13/23 13:20 Proposed Procedure Side Surgeon p Martínez Garcia MD Meds Allergies and Home Medications Allergies Allergy/AdvReac Type Severity Reaction Status Date / Time empagliflozin Allergy Severe rash,itching, Verified 02/13/23 11:59 [From Jardiance] hives gabapentin AdvReac Intermediate nightmares Verified 02/13/23 11:59 rosuvastatin calcium AdvReac Intermediate myalgias Verified 02/13/23 11:59 [From Crestor] prednisone AdvReac Mild GI BURN Verified 02/13/23 11:59 atorvastatin AdvReac Unknown Verified 02/12/23 11:46 Home Medication Medication Instructions Recorded aspirin 81 mg chewable tablet 81 mg PO DAILY 06/06/13 (Aspirin Low-Strength) blood sugar diagnostic (FreeStyle #90 strips 07/14/21 Lite Strips) blood-glucose meter (FreeStyle #1 ea 07/14/21 Lite Meter kit) lancets 28 gauge (FreeStyle #90 ea 07/14/21 Lancets) albuterol sulfate 90 mcg/actuation 2 puff inhalation QID PRN 01/30/22 aerosol inhaler (ProAir HFA) shortness of breath or wheezing #8.5 grams lisinopril 20 mg tablet 20 mg PO DAILY #90 tabs 09/11/22 omeprazole 20 mg capsule,delayed 20 mg PO DAILY #90 tab-caps 09/13/22 release glipizide 10 mg tablet, extended 10 mg PO BID #180 tab-caps 09/14/22 release 24 hr cholecalciferol (vitamin D3) 50 50 mcg PO DAILY 11/16/22 mcg (2,000 unit) capsule rxqaovts-bqwlutco-ltdhf acid 400 1 tab PO DAILY 11/16/22 mcg-vit K 20 mcg-lycop 300 mcg tablet (One-A-Day Men's Multivitamin) triamcinolone acetonide 0.5 % 1 applic topical BID #15 grams 01/03/23 topical cream bisacodyl 5 mg tablet,delayed 5 mg PO ONCE colonscopy bowel prep 01/25/23 release (Dulcolax (bisacodyl)) #4 tabs polyethylene glycol 3350 17 238 g PO ONCE colonoscopy prep 01/25/23 gram/dose oral powder #238 grams prednisone 10 mg tablet 20 mg PO DIRECTED 02/13/23 Current Visit Medications: Current Medications Generic Name Dose Route Start Last Admin Trade Name Crystal PRN Reason Stop Dose Admin Ringer's Solution 1,000 mls @ 80 mls/hr 02/13/23 06:00 02/13/23 12:35 IV 02/13/23 23:59 80 mls/hr INFUSION KLAUS Administration IV Miscellaneous Supplies 1 each 02/13/23 06:00 Iv Access IV 02/13/23 23:59 DIRECTED KLAUS Sodium Chloride 0 ml 02/13/23 06:00 Normal Saline Flush 10 Ml Syr IV 02/13/23 23:59 PRN PRN Sodium Chloride 0 ml 02/13/23 06:00 Normal Saline 10 Ml Vial IJ 02/13/23 23:59 DIRECTED PRN Sterile Water 0 ml 02/13/23 06:00 Water,Injection,Sterile 10 Ml Vial IJ 02/13/23 23:59 DIRECTED PRN PFSH Active Problems Active Problems: Problem Status Onset Code Type II diabetes mellitus, uncontrolled E11.65 Statin intolerance 11/24/15 Z78.9 Migraine G43.909 Hyperlipidemia E78.5 Essential hypertension I10 Mild intermittent asthma J45.20 Family history of colon cancer Z80.0 Thrombocytosis D75.839 Type 2 diabetes mellitus with diabetic nephropathy E11.21 COVID-19 U07.1 Benign prostate hyperplasia N40.0 Heart murmur R01.1 Chronic kidney disease, stage 3 N18.30 BPPV (benign paroxysmal positional vertigo) H81.10 Syncopal episodes R55 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 Medical History Medical History (Updated 02/13/23 @ 12:08 by Yudi Elliott) Hx of cardiac murmur Surgical History Surgical History (Updated 02/13/23 @ 12:07 by Yudi Elliott) Cholecystectomy History of umbilical hernia repair (~11/06/18) Hx of colonoscopy Tobacco Smoking/Tobacco Use Status: Never Passive smoking exposure: Yes Second hand exposure: Yes Alcohol Alcohol Intake: never Substance Use Substance use: Never Substance use type: does not use Vital Signs and Lab Results Vital Signs Most Recent Vital Signs in EMR: Most Recent Vital Signs Temp Pulse Resp BP Pulse Ox 36.5 C 68 16 152/92 H 96 02/13/23 12:10 02/13/23 12:10 02/13/23 12:10 02/13/23 12:10 02/13/23 12:10 Lab Results Blood Type / Crossmatch: No Data to Display Complete Blood Count: No Data to Display Complete Metabolic Panel: No Data to Display Liver Function Panel: No Data to Display Coagulation Panel: No Data to Display Cardiac Panel: No Data to Display Arterial Blood Gas: No Data to Display Venous Blood Gas: No Data to Display Pancreas Panel: No Data to Display Thyroid Panel: No Data to Display Infectious Disease: No Data to Display Blood Cultures: No Data to Display Toxicology Panel: No Data to Display Anesthesia Assessment and Plan Anesthesia History Personal History: No History of Anesthesia Complications Family History: No Family History of Anesthesia Complications Exercise Tolerance Exercise Tolerance: Metabolic Equivalents>4 Pertinent Negatives Pertinent Negatives: No Symptoms of GERD Cardiac & Pulmonary Exam Cardiac Exam: Normal S1/S2 Heart Sounds Pulmonary Exam: Clear Bilateral Breath Sounds Implantable Cardiac Device Does patient have a Pacemaker or an ICD?: No Airway Exam Known Difficult Airway: No Mallampati Class: 2 Mouth Opening: Normal (> 3cm) Thyromental Distance: Greater than 3 cm Neck Range of Motion: Full ROM Neck Circumference: Normal Teeth Condition: Normal Dentition ASA Classification ASA Score: ASA 2 Emergency Case?: No NPO Status NPO Status: NPO Clears >2 hours, Solids >8 hours Anesthesia Plan Resuscitation Status: Full Code Anesthesia Technique: General Anesthesia Airway Planned: Natural Airway Monitors Used: Standard Monitors
[2023-02-13 14:34] VITALS: BMI 30.2
[2023-02-13 14:57] VITALS: BP 117/75; PULSE 69; RESP 18; TEMP 36.7; O2SAT 97
--- NOTE | 2023-02-13 15:05 | W.ANESPOSTOP ---
Postoperative Evaluation Date, Time and Location Date Performed: 02/13/23 Time Performed: 15:05 Patient Location: Day Surgery Unit Vital Signs Most Recent Imported Vital Signs: Most Recent Vital Signs Temp Pulse Resp BP Pulse Ox 36.7 C 69 18 117/75 97 02/13/23 14:57 02/13/23 14:57 02/13/23 14:57 02/13/23 14:57 02/13/23 14:57 Pain Score Most Recent Pain Score: Most Recent Pain Score Pain Level 0 02/13/23 14:57 Assessment Mental Status: Awake (Alert & Oriented to Patient Baseline) Airway and Respiratory Function: Patent airway with normal (patient baseline) respiratory exam Cardiovascular Function: Hemodynamically Stable Hydration Status: Adequately Hydrated Nausea & Vomiting: No Nausea or Vomiting Pain: Pt. Denies Any Pain Peripheral Nerve Block: Patient did not receive a nerve block
[2023-02-13 15:35] VITALS: BP 166/81; PULSE 68; RESP 16; TEMP 36.6; O2SAT 98
== END 2023-02-13 15:46 | disposition home or self-care (01) ==
PROVIDERS: PCP Nurse Practitioner Family; Visit Provider Student in an Organized Health Care Education/Training Program
PROC: 0DJD8ZZ Inspection of Lower Intestinal Tract, Via Natural or Artificial Opening Endoscopic (ICD-10-PCS; CPT 45378; principal; 2023-02-13 13:15)
DX: Z12.11 Encounter for screening for malignant neoplasm of colon (principal); K57.30 Diverticulosis of large intestine without perforation or abscess without bleeding; K64.0 First degree hemorrhoids; Z80.0 Family history of malignant neoplasm of digestive organs
CPT/HCPCS: G0105

== ENCOUNTER 2023-03-07 10:56 | Outpatient (CLI) | payer MEDICARE, BC, SELFPAY ==
--- NOTE | 2023-03-07 10:45 | RT.EKG_ITS ---
APPROVED REPORT Exam: Resting ECG Reason for Exam: chest pain Patient Location: O HR:71 bpm ECG Measurements Heart Rate 71 AXIS [place] 231 P 67 QRSd 112 QRS -28 QT 366 T 60 QTc 398 Conclusion Sinus rhythm...normal P axis, V-rate 50- 99 Prolonged NY interval...NY >220, V-rate 50- [address] elevation, anterior leads...ST >0.10mV, V1-V4
== END 2023-03-07 10:57 | disposition home or self-care (01) ==
LOC: DI.CM 10:57
PROVIDERS: PCP Nurse Practitioner Family; Visit Provider Nurse Practitioner Family
DX: R07.9 Chest pain, unspecified (principal)
CPT/HCPCS: 93010

== ENCOUNTER 2023-03-15 01:01 | Outpatient (CLI) | payer MEDICARE, BC, SELFPAY ==
--- NOTE | 2023-03-15 06:45 | ETT_ITS ---
APPROVED REPORT Exam: Exercise Treadmill Patient Location: Out-Patient Room/Bed: Stress Nurse: Milly Kilgore RN Ordering Provider:SRINIVASAN MACEMIKA, Contact Number: [phone] BMI: 30.66 Baseline Rhythm: Sinus Rhythm, rare PAC Indications: Chest Pain Medical History Medical History: T2DM, GERD, HTN, HLD, mild asthma, heart murmur, CKD, syncopal episodes Cardiac Medications: Aspirin, lisinopril, albuterol sulfate, omeprazole, Allergies: Jardiance, gabapentin, rosuvastatin, prednisone, atorvastatin Cardiac Risk Factors: HTN, HLD, diabetes, asthma Previous Cardiac Procedures: None Pretest Chest Pain Characteristics: 2-12/01 chest pain Exercise History: Physically active Physical Disabilities: Right leg Lung Sounds: Clear to auscultation Heart Sounds: Regular, Murmur Stress Test Details Test: Exercise stress testing was performed using a Joel protocol. Rest Stress HR Resting HR Supine: 72 bpm Max Heart Rate (APMHR): 147 bpm Resting HR Standin bpm Target HR (85% APMHR): 125 bpm Max HR Achieved: 133 bpm % of APMHR: 90 Recovery HR: 90 bpm HR response to stress: Normal HR response to stress BP Resting BP Supine: 162/90 mmHg Resting BP Standin/76 mmHg Max BP: 178/82 mmHg Recovery BP: 158/84 mmHg BP response to stress: Normal blood pressure response to stress. ECG Resting ECG: Sinus Rhythm Ectopy: Rare PAC Stress ECG: Sinus Tachycardia ST Change: Upsloping ST depression Lead(s): inferior leads Stage: [address] Deviation: 0.5-1 mm Arrhythmia: None Recovery ECG: Sinus Rhythm Recovery ST Change: Upsloping ST depression Lead(s): inferior leads Recovery ST Deviation: 0.5-1 mm Recovery Arrhythmia: Rare PVC Comment: ST depression recovers in recovery Clinical Reason for Termination: Target HR Achieved, Fatigue, Dyspnea Stress Symptoms: Baseline 2-12/01 chest pain (unchanged with exercise), mod-severe SOB, fatigue Exercise duration: 06 min20 sec Highest Stage Reached: Stage 3: 3.4 mph at 14% grade. Exercise capacity: 7.54 METs Angina Score: Non-Limiting Medrano Treadmill Score: 0.5 Rate Pressure Product: [id number] Stress ECG Conclusion 1. The resting electrocardiogram showed minor diffuse nondiagnostic ST abnormalities 2. Patient exercised on the Joel protocol and completed a workload of 7.54 METS 3. Chest discomfort was present throughout and did not change with exercise 4. Normal heart rate and blood pressure response to exercise. Patient achieved 90% of predicted hear t rate for age 5. Electrocardiographic portion of the test did not demonstrate any evidence of myocardial ischemia 6. There were no significant dysrhythmias Medrano Treadmill Score is 0.5 which is Moderate risk. Stress Test Summary STAGE Time (mins) Speed (mph) Grade (%) HR BP SpO2 SYMPTOMS METS Supine 72 162/90 94 2-3/10 chest pain Standing 75 146/76 94 2-3/10 chest pain 1 3 1.7 10 109 164/80 97 2-3/10 chest pain, mild SOB 4.5 2 6 2.5 12 128 178/78 2-3/10 chest pain, Mod-severe SOB 7 3 9 3.4 14 133 10 1 min recovery 114 198/64 97 2-3/10 chest pain, Mod-severe SOB 3 min recovery 94 208/82 98 2-3/10 chest pain, SOB resolving 6 min recovery 88 180/88 2-3/10 chest pain, SOB resolved 9 min recovery 90 158/84 96
== END 2023-03-15 01:21 ==
PROVIDERS: PCP Nurse Practitioner Family; Visit Provider Nurse Practitioner Family
DX: R07.9 Chest pain, unspecified (principal)
CPT/HCPCS: 93016; 93018; 93017

== ENCOUNTER 2023-04-17 08:14 | Outpatient (CLI) | payer MEDICARE, BC, SELFPAY ==
--- NOTE | 2023-04-17 08:00 | RT.EKG_ITS ---
APPROVED REPORT Exam: Resting ECG Reason for Exam: syncope Patient Location: O HR:71 bpm ECG Measurements Heart Rate 71 AXIS MA 211 P 41 QRSd 111 QRS -21 QT 381 T 41 QTc 414 Conclusion Sinus rhythm...normal P axis, V-rate 50- 99 IVCD
== END 2023-04-17 08:15 | disposition home or self-care (01) ==
LOC: DI.CARD 08:15
PROVIDERS: PCP Nurse Practitioner Family; Visit Provider Internal Medicine Cardiovascular Disease
DX: R55 Syncope and collapse (principal)
CPT/HCPCS: 93010

== ENCOUNTER → 2023-04-17 12:51 | Outpatient (BNVA) | payer MEDICARE, BC, SELFPAY | PROVIDERS: PCP Nurse Practitioner Family; Referring Provider Nurse Practitioner Family; Visit Provider Internal Medicine Cardiovascular Disease | DX: R07.9 Chest pain, unspecified (principal); I12.9 Hypertensive chronic kidney disease with stage 1 through stage 4 chronic kidney disease, or unspecified chronic kidney disease; E11.22 Type 2 diabetes mellitus with diabetic chronic kidney disease; N18.9 Chronic kidney disease, unspecified | CPT/HCPCS: 93005; 99202; 99213 ==

== ENCOUNTER → 2023-07-31 00:28 | Outpatient (CLI) | payer MEDICARE, BC, SELFPAY ==
--- NOTE | 2023-07-31 07:45 | DI.US_ITS ---
APPROVED REPORT EXAM: Comprehensive 2D, Doppler, and color-flow Echocardiogram Patient Location: Out-Patient Public Relations Specialist: Phyllis Lynch RDCS (AE) Indications: Systolic murmur Other Information Study Quality: Adequate Conclusion Normal left ventricular wall thickness and chamber size. Ejection fraction is 55%. Wall motion is n ormal Normal right ventricular size and systolic function Both atria are normal in size Aortic valve is calcified and trileaflet with trace regurgitation. There is no hemodynamically signi ficant aortic stenosis Dilated aortic root and ascending aorta. The latter measures 3.53 cm Wall motion Left Ventricle The left ventricle is normal size. The left ventricular systolic function is normal. The left ventric ular ejection fraction is within the normal range. There is normal left ventricular wall thickness. T here is normal LV segmental wall motion. There is no ventricular septal defect visualized. LVEF is 55 %. Right Ventricle The right ventricle is normal size. The right ventricular systolic function is normal. Atria The left atrium size is normal. The right atrium size is normal. The interatrial septum is intact wit h no evidence for an atrial septal defect. Aortic Valve Aortic valve is calcified. Aortic valve is trileaflet. No hemodynamically significant valvular aortic stenosis. Trivial aortic regurgitation. Mitral Valve The mitral valve is normal in structure. No evidence of mitral valve stenosis. Trace mitral regurgita tion. Tricuspid Valve The tricuspid valve is normal in structure. There is no tricuspid valve stenosis. Trace tricuspid reg urgitation. Unable to assess PA pressure. Pulmonic Valve The pulmonary valve is normal in structure. There is no pulmonic valvular stenosis. Mild pulmonic reg urgitation. Great Vessels Aortic root is moderately dilated. The ascending aorta is mildly dilated. Aortic arch is not well vis ualized. IVC is normal in size and collapses >50% with inspiration. Pericardium There is no pericardial effusion. 2D Dimensions IVSD d PLAX 1.21 cm M: 0.6-1.2 Ao Root d 4.00 cm M: 3.1 - 3.7 LVPW d PLAX 1.18 cm M: 0.6 - 1.2 Ao Asc Diam d 3.53 cm M: 2.6 - 3.4 LVID d PLAX 4.01 cm M: 4.2 - 5.8 LVDs 3.07 cm M: 2.5 - 4.0 LV EF Teichholz 47.5 % FS 23.50 % LV EDV (Teich) 70.5 mL LV ESV (Teich) 37.0 mL M-Mode TAPSE 2.28 cm (M/F) >1.7 Auto EF LV EDV A4C 116.0 mL LV EDV A2C 102.6 mL LV EDV BP 108.6 mL LV ESV A4C 60.1 mL LV ESV A2C 54.7 mL LV ESV BP 56.9 mL LVEF(%) A4C 48.2 % LVEF(%) A2C 46.6 % LVEF(%) BP 47.6 % LV SV A4C 55.9 ml LV SV A2C 47.9 ml LV SV BP 51.6 ml LV CO A4C 4.1 L/min LV CO A2C 3.6 L/min LV CO BP 3.9 L/min HR A4C 73.47 BPM HR A2C 75.12 BPM LV EDV Index (BP) LV Strain Long Pk Overal Avg (s) 13.41 LA Volume LA Length A4C 4.4 cm LA Length A2C 4.6 cm LA Area A4C s 14.36 cm2 LA Area A2C s 15.77 cm2 LA Vol A4C A-L 39.94 mL LA Vol A2C A-L 45.90 mL LA Vol Biplane A-L 43.9 mL LA Vol/BSA A4C A-L LA Vol/BSA A2C A-L LA Vol/BSA BP A-L 22.4 mL/m2 LA Vol A4C MOD 37.4 mL LA Vol A2C MOD 43.3 mL LA Vol BP MOD 41.2 mL RA Volume RA Area A4C 8.2 cm2 RA ESV A4C (A-L) 15.2mL RA Vol/BSA A4C A-L RA Length A4C 3.7 cm RA ESV A4C (MOD) 15.6mL LV Diastology MV E' medial 0.061 (>0.07 m/s) MV E Vmax 0.54 (0.4-1.3 m/s) MV E/E' MED 8.87 (<14) MV A Vmax 0.85 (0.4-1.3 m/s) MV E' lateral 0.056 (>0.1 m/s) E/A Ratio 0.6 MV E/E' LAT 9.72 (<14) MV E' Average 0.059 m/s MV E/E'(average) 9.27 Aortic Valve AoV Vmax 2.02 m/s LVOT Vmax 0.73 m/s AoV Peak Grad 16.4 mmHg LVOT Peak Grad 2.1 mmHg AoV Area (Vmax) 1.22 cm2 LVOT VTI 0.155 m AoV VTI 0.437 m LVOT Mean Grad 1.4 mmHg AoV Mean Zenon. 1.43 m/s LVOT SV 52.09 mL AoV Mean Grad 9.4 mmHg LVOT Diam s 2.05 cm AoV Area (VTI) 1.19 cm2 Velocity Ratio 0.36 Mitral Valve MV DT 256 (160-240 msec) MV Vmax TIPS 0.82 m/s MV Mean Grad 1.1 (<2mmHg) MV VTI 0.192 m Pulmonary Valve PV Vmax 1.06 (0.5-1.5 m/s) RVOT Vmax 0.51 m/s PV Peak Grad 4.5 mmHg RVOT Peak Gr. 1.0 mmHg PV Mean Zenon 0.75 m/s RVOT VTI 0.108 m PV Mean Grad 2.6 mmHg RVOT Mean Gr. 0.6 mmHg Tricuspid Valve TV S' 0.11 m/s
== END ==
PROVIDERS: Visit Provider Internal Medicine Cardiovascular Disease
DX: R01.1 Cardiac murmur, unspecified (principal)
CPT/HCPCS: 93306

== ENCOUNTER 2023-08-20 13:03 | Outpatient (CLI) | payer MEDICARE, BC, SELFPAY ==
--- NOTE | 2023-08-20 13:45 | RT.EKG_ITS ---
APPROVED REPORT Exam: Resting ECG Reason for Exam: chest pain Patient Location: O HR:75 bpm ECG Measurements Heart Rate 75 AXIS AR 209 P 50 QRSd 108 QRS -19 QT 352 T 47 QTc 394 Conclusion Sinus rhythm...normal P axis, V-rate 50- 99 IVCD
== END 2023-08-20 13:04 | disposition home or self-care (01) ==
LOC: DI.CARD 13:54
PROVIDERS: Referring Provider Nurse Practitioner Family; Visit Provider Internal Medicine Cardiovascular Disease
DX: R07.9 Chest pain, unspecified (principal)
CPT/HCPCS: 93010

== ENCOUNTER 2023-08-20 19:55 | Outpatient (CLI) | payer MEDICARE, BC, SELFPAY ==
[2023-08-20 14:39] LABS: HCT 42.6 % (40.0-50.0); MCH 29.9 pg (27.0-33.0); MCHC 35.2 % (32.0-36.0); MCV 85 fL (80-95); MPV 9.3 fL (8.0-11.0); Platelet Count 439 10^3/uL (130-400); RBC 5.02 10^6/uL (4.36-5.78); RDW 11.7 % (11.8-14.1); RDW-SD 35.6 fL; WBC 9.65 10^3/uL (4.4-10.8)
[2023-08-20 14:50] LABS: PTT Activated 25.3 sec (23.6-32.8); Prothrombin Time 9.6 sec (9.1-11.1)
[2023-08-20 15:35] LABS: BUN 22 mg/dL (7-18); CREATININE 1.4 mg/dL (0.70-1.30); Calcium 9.6 mg/dL (8.5-10.1); Chloride 97 mmol/L (98-107); Estimated GFR 52.74 (mL/min/1.73m2); Glucose 318 mg/dL (74-106); Potassium 4.5 mmol/L (3.5-5.1); Sodium 134 mmol/L (136-145)
== END 2023-08-20 19:56 | disposition home or self-care (01) ==
LOC: LBO 19:55
PROVIDERS: Visit Provider Internal Medicine Cardiovascular Disease
DX: R07.9 Chest pain, unspecified (principal)
CPT/HCPCS: 36415; 80048; 85027; 93005; 99214; 85610; 85730

== ENCOUNTER 2024-10-07 04:01 | Outpatient (CLI) | payer MEDICARE, BC, SELFPAY ==
[2024-10-07 12:25] LABS: Anion Gap 5.2 mmol/L (3-11); BUN 21 mg/dL (7-18); CO2 31.8 mmol/L (21.0-32.0); CREATININE 1.4 mg/dL (0.70-1.30); Calcium 9.5 mg/dL (8.5-10.1); Chloride 103 mmol/L (98-107); Estimated GFR 52.41 (mL/min/1.73m2); Glucose 173 mg/dL (74-106); Potassium 4.9 mmol/L (3.5-5.1); Sodium 140 mmol/L (136-145)
== END 2024-10-07 04:02 | disposition home or self-care (01) ==
LOC: LBO 04:01
PROVIDERS: PCP Nurse Practitioner Primary Care; Visit Provider Nurse Practitioner
DX: Z86.39 Personal history of other endocrine, nutritional and metabolic disease (principal)
CPT/HCPCS: 36415; 80048